=== PATIENT | female | born 1980 | race Caucasian/White ===

== ENCOUNTER 2023-01-11 14:59 | Emergency (ER) | payer OTHER ==
[~2023-01-11] VITALS: Ht 170.2 cm; Wt 86.2 kg
[2023-01-11 15:04] VITALS: BP 139/100
[2023-01-11] MEDS ORDERED: HYDHCL25 PO (16:48)
== END 2023-01-11 18:01 | disposition home or self-care (01) ==
LOC: ER 14:59
DX: F32.A Depression, unspecified (principal); F41.9 Anxiety disorder, unspecified; G47.00 Insomnia, unspecified; Z88.1 Allergy status to other antibiotic agents; Z88.5 Allergy status to narcotic agent
CPT/HCPCS: 99282